=== PATIENT | female | born 1955 | race Caucasian/White ===

== ENCOUNTER → 2022-06-01 14:04 | Outpatient (BNVA) | payer MEDICARE, SELFPAY | PROVIDERS: PCP Internal Medicine; Visit Provider Internal Medicine | DX: M48.061 Spinal stenosis, lumbar region without neurogenic claudication (principal); M21.371 Foot drop, right foot; G57.30 Lesion of lateral popliteal nerve, unspecified lower limb; G25.81 Restless legs syndrome | CPT/HCPCS: 99202 ==

== ENCOUNTER 2022-07-22 06:02 | Outpatient (REF) | payer MEDICARE, SELFPAY ==
--- NOTE | ~2022-07-22 | FL_ITS ---
EXAMINATION: XR FLUOROSCOPY WITH IMAGES CLINICAL INFORMATION: Pain in right shoulder. COMPARISON: None. TECHNIQUE: Fluoroscopy performed by Bee Maria. Fluoroscopy time: 0.1 minute. Cumulative Dose: 0.415 mGy. DAP: 0.0513 Gy-cm2. Images: 1. FINDINGS: There is a needle positioned in the glenohumeral joint space with contrast opacifying the joint space. No bony or joint abnormality seen. FL/FL guidance in treatment room IMPRESSION: Fluoroscopy was provided to the referrer for pain management.
== END 2022-07-22 06:03 | disposition home or self-care (01) ==
LOC: CF 06:02
PROVIDERS: Visit Provider Internal Medicine
DX: M25.511 Pain in right shoulder (principal)
CPT/HCPCS: 20610; J3300

== ENCOUNTER → 2022-09-18 11:26 | Outpatient (BNVA) | payer MEDICARE, SELFPAY | PROVIDERS: PCP Internal Medicine; Visit Provider Internal Medicine | DX: M25.511 Pain in right shoulder (principal) | CPT/HCPCS: 20610; 20611 ==

== ENCOUNTER → 2022-12-14 14:08 | Outpatient (BNVA) | payer MEDICARE, SELFPAY | PROVIDERS: PCP Internal Medicine; Visit Provider Internal Medicine | DX: M25.511 Pain in right shoulder (principal) | CPT/HCPCS: 20550; 20605; 20610; J2795; J3301 ==

== ENCOUNTER 2023-05-12 07:21 | Outpatient (REF) | payer MEDICARE, SELFPAY | END 2023-05-12 07:22 | disposition home or self-care (01) | LOC: CF 07:21 | PROVIDERS: PCP Internal Medicine; Visit Provider Internal Medicine | DX: Z13.89 Encounter for screening for other disorder (principal) | CPT/HCPCS: J3301 ==

== ENCOUNTER 2023-07-24 09:56 | Outpatient (REF) | payer MEDICARE, SELFPAY ==
--- NOTE | ~2023-07-24 | XR_ITS ---
EXAMINATION: XR SHOULDER, LEFT CLINICAL INFORMATION: Pain in left COMPARISON: Same-day right shoulder TECHNIQUE: AP external rotation, Grashey, scapular Y, and axillary views of the left shoulder. FINDINGS: The bones are diffusely demineralized. The bones are intact. No fracture. Glenohumeral and acromioclavicular alignment is anatomic. There is mild narrowing of the glenohumeral joint space. There is moderate degenerative change of the acromioclavicular joint. No abnormal soft tissue calcifications. XR/XR shoulder LT min 2V IMPRESSION: No acute bony abnormality. Degenerative changes.
--- NOTE | ~2023-07-24 | XR_ITS ---
EXAMINATION: XR SHOULDER, RIGHT CLINICAL INFORMATION: Pain in right shoulder COMPARISON: Same-day left shoulder TECHNIQUE: AP external rotation, Grashey, scapular Y, and axillary views of the right shoulder. FINDINGS: The bones are diffusely demineralized. The bones are intact. No fracture or dislocation. Glenohumeral and acromioclavicular alignment is anatomic. There is mild narrowing of the glenohumeral joint with small marginal osteophytes extending off the humeral head and inferior aspect of the glenoid. There is moderate degenerative change of the acromioclavicular joint. No abnormal soft tissue calcifications. XR/XR shoulder RT min 2V IMPRESSION: No acute bony abnormality. Degenerative changes.
== END 2023-07-24 09:57 | disposition home or self-care (01) ==
LOC: HO.XRAY 09:56
PROVIDERS: PCP Internal Medicine; Visit Provider Internal Medicine
DX: M25.511 Pain in right shoulder (principal); M25.512 Pain in left shoulder
CPT/HCPCS: 73030

== ENCOUNTER 2023-07-26 09:45 | Outpatient (AMB) | payer MEDICARE, SELFPAY ==
[2023-07-26 10:39] VITALS: BP 152/80; PULSE 94; RESP 14; O2SAT 93; BMI 22.1
--- NOTE | 2023-07-26 10:39 | MHC.OFFVIS ---
Intake Vital Signs 07/26/23 10:39 Height 5 ft 3 in Weight 125 lb BMI 22.1 BP 152/80 H Blood Pressure Location Rt brachial Position Sitting Respiration 14 Pulse 94 Pulse Source Pulse Oximeter Pulse Oximetry (%) 93 Oxygen Delivery Method Room Air Intake Visit Reasons: shoulder injection Allergies No Known Allergies Allergy (Verified 07/26/23 10:42) Medication List - Last Reconciled 07/26/23 by Shelby Tuttle LPN clonazepam 1 mg PO TID PRN methylphenidate HCl 20 mg PO TID tramadol 50 mg PO Q6H PRN trazodone 200 mg PO BEDTIME PRN HPI shoulder injection HPI Details 68-year-old female who presents today to the office for a shoulder injection. Denies any recent cough, cold, infection, fever or other significant changes in medical history since last office visit. Past Procedures: 05/12/23: Right shoulder bicipital groove and subacromial/subdeltoid bursa injections US guided: 70% relief. 09/18/22: Glenohumeral and Subacromial Joint Injection ultrasound-guided ? 60% relief. 07/22/22: Right Intraarticular Shoulder Injection fluoro guided ? 100% relief. FOR[facility]LY [facility] Medical History (Updated 08/03/23 @ 08:06 by Arturo Holcomb MD) History of COVID-19 Asthma GERD (gastroesophageal reflux disease) ADHD Depression Anxiety Chronic bilateral low back pain Surgical History (Updated 06/01/22 @ 14:38 by KING Kelly) History of arthroscopy of right shoulder H/O gastric bypass Review of Systems Const All systems reviewed & are unremarkable except as noted in HPI and below Physical Exam Vital Signs: Last Vital Signs Pulse 94 07/26/23 10:39 Resp 14 07/26/23 10:39 BP 152/80 H 07/26/23 10:39 Pulse Ox 93 07/26/23 10:39 Oxygen Delivery Method Room Air 07/26/23 10:39 BMI result Body Mass Index 22.1 General: Appears afebrile. Alert and oriented. Mood and affect appropriate. Follows and participates in conversation appropriately. Respiratory effort is unlabored. Able to transition from sit to stand unassisted. Ambulates with bilaterally normal heel strike and toe off. Office Procedures Joint Injection/Drain Joint Injection/Drain Details: Bilateral glenohumeral shoulder injection, ultrasound guided. Primary Site: right shoulder Secondary Site: left shoulder Prep: site was prepped using sterile technique Injected: 40 mg of, Kenalog, with 3 mL of (Ropivacaine 0.5%) and in the joint Approach Used: posterolateral Procedure: The patient tolerated the procedure well Coding Details: An ultrasound image of the injection was taken and stored in the permanent record. - Glenohumeral with ultrasound guidance (Bilateral) Procedure code (CPT) selection complete Results Reviewed Results Reviewed: No imaging is available for review. Assessment & Plan Assessment & Plan (1) Bilateral shoulder pain: Code(s): M25.511 - Pain in right shoulder; M25.512 - Pain in left shoulder Qualifiers: Chronicity: chronic Qualified Code(s): M25.511 - Pain in right shoulder; M25.512 - Pain in left shoulder; G89.29 - Other chronic pain Plan Patient is status post bilateral glenohumeral shoulder injection, ultrasound guided. Patient tolerated procedure well and was discharged home in stable condition with discharge instructions. All questions were answered. I also ordered a DEXA scan to access the bone density. Follow-up as needed. Scribed for Dr. Holcomb by Huang Harris, medical records auditor, on 07/26/2023. I, Dr. Holcomb, have personally reviewed and agree with the information entered by the scribe. Orders: Orders XR shoulder LT min 2V 07/24/23 M25.511 - Pain in right shoulder, M25.512 - Pain in left shoulder XR DEXA axial skeleton 07/26/23 M25.511 - Pain in right shoulder, M25.512 - Pain in left shoulder XR shoulder RT min 2V 07/24/23 M25.511 - Pain in right shoulder, M25.512 - Pain in left shoulder Coding Level of Care Code Est Pt Level 3 (52062) Diagnoses Chronic pain of both shoulders M25.511; M25.512; G89.29 Chronicity: chronic CPT Codes Coding - Joint 8: - Glenohumeral with ultrasound guidance ([id number])
== END 2023-07-26 11:00 | disposition home or self-care (01) ==
PROVIDERS: PCP Internal Medicine; Visit Provider Internal Medicine
DX: M25.511 Pain in right shoulder (principal); M25.512 Pain in left shoulder; G89.29 Other chronic pain
CPT/HCPCS: 20611

== ENCOUNTER → 2023-07-26 09:45 | Outpatient (BNVA) | payer MEDICARE, SELFPAY | PROVIDERS: PCP Internal Medicine; Visit Provider Internal Medicine | DX: M25.511 Pain in right shoulder (principal); M25.512 Pain in left shoulder; G89.29 Other chronic pain | CPT/HCPCS: 20611; J3301 ==

== ENCOUNTER → 2023-08-06 09:04 | Outpatient (BNVA) | payer MEDICARE, SELFPAY | PROVIDERS: PCP Internal Medicine; Visit Provider Internal Medicine | DX: M25.511 Pain in right shoulder (principal); M25.512 Pain in left shoulder; M54.12 Radiculopathy, cervical region; G89.29 Other chronic pain | CPT/HCPCS: 20550; 99212; J3301 ==

== ENCOUNTER 2023-08-11 10:21 | Outpatient (AMB) | payer MEDICARE, SELFPAY ==
--- NOTE | 2023-08-11 10:54 | MHC.OFFVIS ---
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 The patient describes her left shoulder pain as sharp in nature. She did injure left shoulder several years ago while lifting a heavy object. Since that time her symptoms have gotten worse in spite of continued non operative treatments. She has had multiple injections. The most recent injection gave her no relief. She has also been to physical therapy for 12 weeks over the last 6 months which aggravated her pain. She has tried Tylenol, anti-inflammatory medicines, tramadol and oxycodone which gave her only mild relief. The patient reports difficulty lifting her left hand above shoulder height. Allergies No Known Allergies Allergy (Verified 08/11/23 11:12) Medication List - Last Reconciled 08/11/23 by Crissy Che RN clonazepam 1 mg PO TID PRN methylphenidate HCl 20 mg PO TID oxycodone 15 mg PO QID PRN tramadol 50 mg PO Q6H PRN trazodone 200 mg PO BEDTIME PRN PFSH Medical History (Updated 08/11/23 @ 11:46 by Naseem Gallagher MD) History of COVID-19 Asthma GERD (gastroesophageal reflux disease) ADHD Depression Anxiety Chronic bilateral low back pain Surgical History (Updated 06/01/22 @ 14:38 by KING Kelly) History of arthroscopy of right shoulder H/O gastric bypass Physical Exam Const Other: Well-nourished well-developed very friendly female awake alert and oriented x3 in no acute distress Extrem Other: Bilateral upper extremity examination shows good capillary refill, no skin lesions noted, normal sensation light touch Left shoulder examination shows decreased range of motion when compared to her right shoulder, 4+ out of 5 strength with supraspinatus testing, positive impingement signs, tenderness over her acromioclavicular joint, no instability Assessment & Plan Assessment & Plan (1) Left shoulder pain: Code(s): M25.512 - Pain in left shoulder Plan: Ms. Pagan presents with progressively worsening left shoulder pain and weakness due to impingement syndrome, acromioclavicular joint arthritis and possible rotator cuff tearing. Thus, I will send the patient for an MRI of her left shoulder for further evaluation. I will see her back once the MRI is completed to discuss the findings and treatment options. She will continue with her range of motion exercises in the meantime to prevent stiffness. Feel free to call me at any time should questions regarding her orthopedic management arise. Thank you very much for asking me to see this very friendly patient. I spent 22 minutes in reviewing the patient's records and imaging studies, seeing the patient and documenting in the medical record. Orders: Orders MR shoulder LT wo con Today M25.512 - Pain in left shoulder Coding Level of Care Code New Pt Level 2 (14509) Diagnoses Left shoulder pain M25.512
== END 2023-08-11 11:53 | disposition home or self-care (01) ==
PROVIDERS: PCP Internal Medicine; Visit Provider Orthopaedic Surgery
DX: M25.512 Pain in left shoulder (principal)
CPT/HCPCS: 99202

== ENCOUNTER → 2023-08-11 10:21 | Outpatient (BNVA) | payer MEDICARE, SELFPAY | PROVIDERS: PCP Internal Medicine; Visit Provider Orthopaedic Surgery | DX: M25.512 Pain in left shoulder (principal); M25.511 Pain in right shoulder | CPT/HCPCS: 99202 ==

== ENCOUNTER 2023-08-18 10:38 | Outpatient (REF) | payer MEDICARE, SELFPAY ==
--- NOTE | ~2023-08-18 | MM_ITS ---
EXAMINATION: BONE DENSITOMETRY CLINICAL INDICATION: Pain in right shoulder. COMPARISON: This is the patient's baseline examination. TECHNIQUE: Using a [employer] DXA System (software version: 13.1) manufactured by [employer], dual-energy x-ray absorptiometry was performed of the lumbar spine and left hip. The images are of good technical quality. Summary results are attached. FINDINGS: LEFT FEMUR, NECK: BMD 0.689 g/cm2, Z-score -0.8, T-score -2.5, osteoporosis. LEFT FEMUR, TOTAL: BMD 0.747 g/cm2, Z-score -0.6, T-score -2.1, osteopenia. AP SPINE L1-L4: BMD 0.922 g/cm2, Z-score -0.3, T-score -2.1, osteopenia. IDENTIFIED RISK FACTORS: Menopause, low calcium intake, glucocorticoids, secondary osteoporosis (partial gastrectomy). HISTORY OF FRACTURE: None listed. MEDICATIONS: None listed. MM/XR DEXA axial skeleton IMPRESSION: 1. DIAGNOSIS: Osteoporosis based on the lowest T-score value of -2.5 in the femoral neck applying World Health Organization criteria. 2. 10-YEAR FRACTURE RISK PREDICTION, FRAX: According to the guidelines, FRAX calculation should only be performed on patients in the osteopenia bone density category. Therefore, FRAX was not performed on this patient. 3. Treatment Recommendations: NOF guidelines recommend consideration for treatment in postmenopausal women and men age 50 and older presenting with the following: -A hip or vertebral (clinical or morphometric) fracture. -T-score less than or equal to -2.5 at the femoral neck or spine after appropriate evaluation to exclude secondary causes. -Low bone mass at the hip or spine and a 10-year fracture probability by FRAX of greater than or equal to 3% for hip fracture or greater than or equal to 20% for major osteoporotic fracture based on the [place] adapted WHO algorithm. 4. Other Recommendations: All treatment decisions require clinical judgment and consideration of individual patient factors, including patient preferences, comorbidities, previous drug use, risk factors not captured in the FRAX model (e.g. frailty, falls, vitamin D deficiency, increased bone turnover, interval significant decline in bone density) and possible under or overestimation of fracture risk by FRAX. Additional medical evaluation for secondary cause of low bone mineral density may be appropriate. FUTURE SCAN RECOMMENDATION: People with diagnosed cases of osteoporosis or at high risk for fracture should have regular bone mineral density tests. For patients eligible for Medicare, routine testing is allowed once every 2 years. The testing frequency can be increased to one year for patients who have rapidly progressing disease, those who are receiving or discontinuing medical therapy to restore bone mass, or have additional risk factors.
== END 2023-08-18 10:39 | disposition home or self-care (01) ==
LOC: HO.MAMMO 10:38
PROVIDERS: PCP Internal Medicine; Visit Provider Internal Medicine
DX: Z13.820 Encounter for screening for osteoporosis (principal); Z78.0 Asymptomatic menopausal state; M25.511 Pain in right shoulder; M25.512 Pain in left shoulder
CPT/HCPCS: 77080

== ENCOUNTER 2023-08-24 09:28 | Outpatient (AMB) | payer MEDICARE, SELFPAY ==
--- NOTE | 2023-08-24 09:33 | MHC.OFFVIS ---
Intake Vital Signs 08/24/23 09:37 Height 5 ft 3 in Weight 125 lb BMI 22.1 Intake Visit Reasons: OV - left shoulder pain Intake Note: Ms. Pagan presents with progressively worsening left shoulder pain and weakness. She describes her pain as sharp and severe in nature, 07/20. Her symptoms have gotten worse over the last 12 months in spite of continued non operative treatments. She did injure her left shoulder approximately 1 year ago while lifting heavy object. Since that time her symptoms have gotten worse. She has done physical therapy which aggravated her pain and prevented her from returning to therapy. She has had injections in the past which gave her minimal relief. She has also tried Tylenol anti-inflammatory medicines, tramadol and oxycodone which gave her minimal relief. The patient reports difficulty lifting her left hand above shoulder height. Allergies No Known Allergies Allergy (Verified 08/11/23 11:12) Medication List - Last Reconciled 08/24/23 by Naseem Gallagher MD bupropion HCl 100 mg PO BID clonazepam 1 mg PO TID PRN methylphenidate HCl 20 mg PO TID oxycodone 15 mg PO QID PRN tramadol 50 mg PO Q6H PRN trazodone 200 mg PO BEDTIME PRN PFSH Medical History (Updated 08/11/23 @ 11:46 by Naseem Gallagher MD) History of COVID-19 Asthma GERD (gastroesophageal reflux disease) ADHD Depression Anxiety Chronic bilateral low back pain Surgical History (Updated 06/01/22 @ 14:38 by KING Kelly) History of arthroscopy of right shoulder H/O gastric bypass Physical Exam Vital Signs: BMI result Body Mass Index 22.1 Const Other: Well-nourished well-developed very friendly female awake alert and oriented x3 in no acute distress room Lungs - clear to auscultation bilaterally with symmetric expansion Cardiovascular exam - regular rate and rhythm Abdominal exam - soft nontender nondistended Extrem Other: Bilateral upper extremity examination shows good capillary refill, no skin lesions noted, normal sensation light touch Left shoulder examination shows decreased active and passive range of motion when compared to her right shoulder, 4+ out of 5 strength with supraspinatus testing, positive impingement signs, tenderness over her acromioclavicular joint, no instability Assessment & Plan Assessment & Plan (1) Left shoulder pain: Code(s): M25.512 - Pain in left shoulder Plan: Ms. Pagan presents with progressively worsening left shoulder pain and weakness due to impingement syndrome, acromioclavicular joint arthritis and most likely a full-thickness rotator cuff tear. I had a lengthy discussion with the patient regarding the treatment options. At this point she has failed continued non operative treatments. The risks and benefits of left shoulder surgery were discussed at length with the patient. The patient wishes to proceed with surgery. Surgery will most likely involve left shoulder diagnostic arthroscopy with distal clavicle excision, acromioplasty and rotator cuff repair should a full-thickness tear be found at the time of her surgery. The patient will contact my office to pick a surgery date. She will follow-up as instructed. Feel free to call me at any time should questions regarding her orthopedic management arise. I spent 22 minutes in reviewing the patient's records and imaging studies, seeing the patient and documenting in the medical record. Coding Level of Care Code Est Pt Level 2 (83221) Diagnoses Left shoulder pain M25.512
[2023-08-24 09:37] VITALS: BMI 22.1
== END 2023-08-24 10:02 | disposition home or self-care (01) ==
PROVIDERS: PCP Internal Medicine; Visit Provider Orthopaedic Surgery
DX: M25.512 Pain in left shoulder (principal)
CPT/HCPCS: 99212

== ENCOUNTER → 2023-08-24 09:28 | Outpatient (BNVA) | payer MEDICARE, SELFPAY | PROVIDERS: PCP Internal Medicine; Visit Provider Orthopaedic Surgery | DX: M25.512 Pain in left shoulder (principal) | CPT/HCPCS: 99212 ==

== ENCOUNTER 2023-09-06 06:32 | Day surgery (SDC) | payer MEDICARE, SELFPAY ==
[2023-08-30 15:22] VITALS: BMI 22.1
[2023-09-06] VITALS (10 sets, daily range): BP systolic 116–151; BP diastolic 61–83; PULSE 69–84; RESP 16–18; TEMP 36.7–37; O2SAT 93–98; BMI 23.0
--- NOTE | 2023-09-06 09:05 | HO.ANESPROP2 ---
Documented by User: Kandis Berman NP 08/31/23 13:55 HPI - Anesthesia Eval Consult details Narrative: 68yo F for Left Shoulder Arthroplasty, distal clavicle excision, acromioplasty, capsular release, manipulation PMFSH Active Problems Active Problems: All Active Problems (Updated 08/30/23 @ 15:18 by Aditi Lopez RN) Left shoulder pain (Acute) Cervical radicular pain (Acute) Bilateral shoulder pain (Acute) Right shoulder pain (Acute) Peroneal neuropathy (Acute) Foot drop, right (Acute) Restless legs syndrome (Acute) Spinal stenosis, lumbar region without neurogenic claudication (Acute) Past Medical History Medical History Restless leg syndrome Spinal stenosis Arthritis History of COVID-19 Asthma GERD (gastroesophageal reflux disease) ADHD Depression Anxiety Chronic bilateral low back pain Surgical History Surgical History History of arthroscopy of right shoulder H/O gastric bypass Social History Patient Tobacco Use Status: Never used Tobacco Have you been hit, kicked, punched, or otherwise hurt by someone within the past year? If so, by whom?: No Are you DNR?: No Advance Directives: No Advance Directives Information Provided: Yes Recently lost weight without trying: No Nutrition Risks: No Nutritional Risk Patient : No Meds Allergies Allergy/AdvReac Type Severity Reaction Status Date / Time No Known Allergies Allergy Verified 08/11/23 11:12 Active Medications: Current Medications Cefazolin Sodium/Dextrose (Ancef) 2 gm in 50 mls @ 100 mls/hr IV PREOP ONE Stop: 09/06/23 04:01 Home Medications Medication Instructions Recorded Confirmed Last Taken Type clonazepam 1 mg tablet 1 mg PO TID PRN Anxiety 06/01/22 08/30/23 Unknown History methylphenidate HCl 20 mg tablet 20 mg PO TID 06/01/22 08/30/23 Unknown History tramadol 50 mg tablet 50 mg PO Q6H PRN Pain 06/01/22 08/30/23 Unknown History trazodone 100 mg tablet 200 mg PO BEDTIME PRN Insomnia 06/01/22 08/30/23 Unknown History oxycodone 15 mg tablet 15 mg PO QID PRN Pain 08/06/23 08/30/23 Unknown History bupropion HCl 100 mg tablet 100 mg PO BID 08/24/23 08/30/23 Unknown History Exam Height,Weight and Vital Signs: Height 5 ft 3 in Weight 56.699 kg Assessment and Plan Assessment Anesthesia Assessment: Chart Reviewed Documented by User: Crissy Ybarra DO 09/06/23 09:58 PMFSH Past Medical History Medical History Restless leg syndrome Spinal stenosis Arthritis History of COVID-19 Asthma GERD (gastroesophageal reflux disease) ADHD Depression Anxiety Chronic bilateral low back pain Family History Family history of problems with anesthesia: No Surgical History Surgical History History of arthroscopy of right shoulder H/O gastric bypass History of Problems with Anesthesia: No Social History Patient Tobacco Use Status: Never used Tobacco Have you been hit, kicked, punched, or otherwise hurt by someone within the past year? If so, by whom?: No Are you DNR?: No Advance Directives: No Advance Directives Information Provided: Yes Recently lost weight without trying: No Nutrition Risks: No Nutritional Risk Patient : No Meds Allergies Allergy/AdvReac Type Severity Reaction Status Date / Time No Known Allergies Allergy Verified 08/11/23 11:12 Home Medications Medication Instructions Recorded Confirmed Last Taken Type clonazepam 1 mg tablet 1 mg PO TID PRN Anxiety 06/01/22 08/30/23 Unknown History methylphenidate HCl 20 mg tablet 20 mg PO TID 06/01/22 08/30/23 Unknown History tramadol 50 mg tablet 50 mg PO Q6H PRN Pain 06/01/22 08/30/23 Unknown History trazodone 100 mg tablet 200 mg PO BEDTIME PRN Insomnia 06/01/22 08/30/23 Unknown History oxycodone 15 mg tablet 15 mg PO QID PRN Pain 08/06/23 08/30/23 Unknown History bupropion HCl 100 mg tablet 100 mg PO BID 08/24/23 08/30/23 Unknown History Exam Exam Date and Time: September 06, 2023 0905 Height,Weight and Vital Signs: Height 5 ft 3 in Weight 56.699 kg Vital Signs Temperature 98.6 F 09/06/23 07:25 Pulse Rate 73 09/06/23 07:25 Respiratory Rate 18 09/06/23 07:25 Blood Pressure 144/83 H 09/06/23 07:25 Pulse Oximetry 95 09/06/23 07:25 Oxygen Delivery Method Room Air 09/06/23 07:25 Temperature 98.6 F 09/06/23 07:25 Pulse Rate 73 09/06/23 07:25 Respiratory Rate 18 09/06/23 07:25 Blood Pressure 144/83 H 09/06/23 07:25 Pulse Oximetry 95 09/06/23 07:25 Oxygen Delivery Method Room Air 09/06/23 07:25 Airway Mallampati Class: I TM Dist: <=3cm Neck ROM: Limited Loose/Missing/Broken Teeth: Yes (Edentulous) Heart: S1S2 Lungs: CTAB Assessment and Plan Assessment Anesthesia Assessment: Anesthesia Plan Discussed and Chart Reviewed Final Anesthetic Review Family History of Problems with Anesthesia: No History of Problems with Anesthesia: No NPO: Yes ASA Class: II Final Preanesthetic Review: No Changes in Pt Med Stat, Meds/Allgs Chart Reviewed, Consent Obtained/Reviewed and Anes Risks/Benef Reviewed Patient Risk: Low Procedure Risk: Low Anesthetic Plan Anesthetic Plan: GA, Regional Block (left brachial plexus) and Agree w/ Assess. and Plan Disposition: Standard PACU
[2023-09-06] MEDS: Lactated Ringers 1,000 ML 100 ML IVCONT (09:29)
--- NOTE | 2023-09-06 10:40 | P.BOP_ITS ---
Brief Operative Note Date of Service: 09/06/23 Pre-op diagnosis: Left shoulder impingement syndrome, left shoulder acromioclavicular joint arthritis, left shoulder adhesive capsulitis Post-op diagnosis: other (Same as preoperative diagnoses as well as left shoulder glenohumeral joint arthritis) Procedure: Left shoulder diagnostic arthroscopy with left shoulder arthroscopic distal clavicle excision, left shoulder arthroscopic acromioplasty, left shoulder arthroscopic anterior capsular release, left shoulder arthroscopic glenohumeral joint debridement, left shoulder manipulation under anesthesia Implants: none Surgeon: Naseem Gallagher MD Anesthesia: GETA and regional Was an Coremaker Supervisor used for this Procedure?: No Estimated blood loss (mL): 10 Pathology: none sent Condition: stable Disposition: PACU
--- NOTE | 2023-09-06 10:43 | P.OP_ITS ---
Operative Note Operative Note Date of Service: 09/06/23 Narrative: After the patient was identified as Pati Pagan and their left shoulder was initialed by myself the patient was brought to the holding area where a left shoulder interscalene regional block was performed by the anesthesiologist in routine fashion. The patient was then brought to the operating room where general anesthesia was induced by the anesthesiologist in routine fashion. The patient was given 2 g of IV Ancef preoperatively for infection prophylaxis. Examination under anesthesia of the patient's left shoulder showed decreased range of motion when compared to the right shoulder. The patient's left shoulder had forward flexion to 110 degrees compared to 170 degrees, external rotation to 40 degrees compared to 70 degrees, and internal rotation to 40 degrees compared to 50 degrees. The patient was gently positioned in the beach chair position with all bony prominences well padded. The patient's left shoulder region and upper extremity were prepped and draped in sterile fashion. A formal time-out was completed. A #11 scalpel blade was used to make a posterior portal 2 cm inferior and 1 cm medial to the posterolateral corner of the acromion. Blunt trocar technique was used to enter the glenohumeral joint in routine fashion. An anterior portal was made just lateral to the coracoid process after proper positioning was confirmed using a spinal needle. Diagnostic arthroscopy showed diffuse grade 3 and 4 degenerative changes of the articular surfaces of the glenoid and humeral head. The articular surfaces were then made smooth using the arthroscopic shaver. There was no evidence of rotato r cuff tearing. There was no evidence of injury to the biceps tendon or its insertion onto the glenoid. There was inflammation of the anterior joint capsule consistent with adhesive capsulitis. The ArthroCare Wand was then used to perform an anterior capsular release between the inferior border of the biceps tendon and the superior border of the subscapularis tendon. The arthroscope was then placed from the posterior portal into the subacromial space. A lateral portal was made 2 fingerbreadths lateral to the anterior lateral corner of the acromion. The ArthroCare Wand was used to ablate soft tissues along the undersurface of the acromion as well as to excise the coracoacromial ligament. There was a sharp spur along the undersurface of the acromion which was removed using the hooded bur. The arthroscope was then placed into the lateral portal and the acromioplasty was completed with the bur in the posterior portal using the posterior aspect of the acromion as a cutting block. The ArthroCare Wand was then brought in through the anterior portal and was used to ablate soft tissues along the acromioclavicular joint and distal clavicle. The posterior and superior ligamentous structures were left intact. A distal clavicle excision of 8 mm was performed using the hooded bur. Any remaining bursal tissue was removed using the arthroscopic shaver. The subacromial space was irrigated and then drained. All arthroscopic instruments were removed. A gentle manipulation under anesthesia was then performed. Full passive range of motion was easily obtained. The 3 portals were closed with 3-0 nylon interrupted suture. The subacromial space was injected with Marcaine. Dry sterile dressing was placed over all incisions. The patient's left upper extremity was placed into a sling. The patient was awoken and extubated in the operating room. The patient was transferred to the recovery room in stable condition.
[2023-09-06] MEDS: cefTRIAXone sodium 1 GM in 0.9 % Sodium Chloride 50 ML IV (10:50)
== END 2023-09-06 13:19 | disposition home or self-care (01) ==
PROVIDERS: PCP Internal Medicine; Visit Provider Orthopaedic Surgery
PROC: (CPT 29805; principal; 2023-09-06 09:10)
DX: M75.42 Impingement syndrome of left shoulder (principal); M75.02 Adhesive capsulitis of left shoulder; M19.012 Primary osteoarthritis, left shoulder; J45.909 Unspecified asthma, uncomplicated; F90.9 Attention-deficit hyperactivity disorder, unspecified type; K21.9 Gastro-esophageal reflux disease without esophagitis; F32.A Depression, unspecified; F41.9 Anxiety disorder, unspecified; G89.29 Other chronic pain; M54.50 Low back pain, unspecified; Z79.899 Other long term (current) drug therapy; Z98.84 Bariatric surgery status; Z86.16 Personal history of COVID-19
CPT/HCPCS: 29824; 29825; 29826; J0131; J0171; J0690; J0696; J1100; J2371; J2405; J2550; J2704; J2795; J3010

== ENCOUNTER → 2023-09-06 06:32 | Outpatient (BNV) | payer MEDICARE, SELFPAY | PROVIDERS: PCP Internal Medicine; Visit Provider Orthopaedic Surgery | DX: M75.42 Impingement syndrome of left shoulder (principal); M19.012 Primary osteoarthritis, left shoulder; M75.02 Adhesive capsulitis of left shoulder | CPT/HCPCS: 29822; 29824; 29825; 29826 ==

== ENCOUNTER 2023-09-23 10:22 | Outpatient (AMB) | payer MEDICARE, SELFPAY ==
--- NOTE | 2023-09-23 10:27 | A.OFFVIS_ITS ---
Intake Intake Visit Reasons: PO-Lt Shld 09/06 Intake Note: Ms. Pagan presents for her 1st postoperative visit after undergoing left shoulder arthroscopic surgery on 09/06/2023. She reports mild to moderate discomfort in her left shoulder. She has been doing stretching exercises on her own. She takes oxycodone which gives her fairly good relief. She denies any fevers or chills. Today she is most concerned with progressively worsening right shoulder pain and stiffness. Her right shoulder pain has gotten worse over the last few years in spite of continued non operative treatments. She has done physical therapy in the past which aggravated her symptoms. She has also tried Tylenol and anti- inflammatory medicines which gave her minimal relief. She has had injections in the past which gave her no relief. Allergies No Known Allergies Allergy (Verified 09/23/23 10:27) Medication List - Last Reconciled 09/23/23 by Naseem Gallagher MD clonazepam 1 mg PO TID PRN methylphenidate HCl 20 mg PO TID oxycodone 15 mg PO QID PRN oxycodone 10 mg (2 x 5 mg) PO Q4H PRN tramadol 50 mg PO Q6H PRN trazodone 200 mg PO BEDTIME PRN PFSH Medical History Restless leg syndrome Spinal stenosis Arthritis History of COVID-19 Asthma GERD (gastroesophageal reflux disease) ADHD Depression Anxiety Chronic bilateral low back pain Surgical History History of arthroscopy of right shoulder H/O gastric bypass Social History Patient Tobacco Use Status: Never used Tobacco Physical Exam Const Other: Well-nourished well-developed very friendly female awake alert and oriented x3 in no acute distress Extrem Other: Bilateral upper extremity examination shows good capillary refill, no skin lesions noted, normal sensation light touch Left shoulder examination shows that the surgical incisions are healing well, no erythema, mild discomfort with range of motion, 5/5 strength with supraspinatus testing Right shoulder examination shows positive impingement signs, 5/5 strength with supraspinatus testing, positive impingement signs, tenderness over her acromioclavicular joint, no instability Results Reviewed Results Reviewed: X-rays of the patient's right shoulder show severe acromioclavicular joint narrowing, a type 2 acromion, no acute bony abnormalities Assessment & Plan Assessment & Plan (1) Left shoulder pain: Code(s): M25.512 - Pain in left shoulder Plan: Ms. Pagan is doing very well after undergoing left shoulder arthroscopic surgery on 09/06/2023. Her sutures were removed and Steri-Strips placed over her incisions. She will continue with her home stretching program. She does not wish to go to formal physical therapy. The patient also has right shoulder pain and stiffness due to impingement syndrome, acromioclavicular joint arthritis and adhesive capsulitis. At this point she has failed continued non operative treatments. The risks and benefits of right shoulder surgery were discussed at length with the patient. The patient is interested in proceeding with surgery early next year. Surgery will most likely involve right shoulder diagnostic arthroscopy with distal clavicle excision, acromioplasty, capsular release and manipulation under anesthesia. The patient will contact my office to pick a surgery date. She will follow-up as instructed. Feel free to call me at any time should questions regarding her orthopedic management arise. (2) Right shoulder pain: Code(s): M25.511 - Pain in right shoulder Plan I spent 22 minutes in reviewing the patient's records and imaging studies, seeing the patient and documenting in the medical record. Medications: Changed From oxycodone Partial Fill upon patient request. 10 mg (2 x 5 mg) PO Q4H PRN 40 tabs 0RF pain To oxycodone Partial Fill upon patient request. 5 mg PO Q6H PRN 40 tabs 0RF pain Coding Level of Care Code Est Pt Level 2 (17996) Diagnoses Left shoulder pain M25.512 Right shoulder pain M25.511
== END 2023-09-23 10:48 | disposition home or self-care (01) ==
PROVIDERS: PCP Internal Medicine; Visit Provider Orthopaedic Surgery
DX: M25.511 Pain in right shoulder (principal); M25.512 Pain in left shoulder
CPT/HCPCS: 99212

== ENCOUNTER → 2023-09-23 10:22 | Outpatient (BNVA) | payer MEDICARE, SELFPAY | PROVIDERS: PCP Internal Medicine; Visit Provider Orthopaedic Surgery | DX: M25.511 Pain in right shoulder (principal); M25.512 Pain in left shoulder | CPT/HCPCS: 99212 ==

== ENCOUNTER 2023-10-25 10:12 | Outpatient (AMB) | payer MEDICARE, SELFPAY ==
[2023-10-25 10:31] VITALS: BP 134/81; PULSE 97; RESP 12; BMI 22.1
--- NOTE | 2023-10-25 10:31 | MHC.OFFVIS ---
Intake Vital Signs 10/25/23 10:31 Height 5 ft 3 in Weight 125 lb BMI 22.1 BP 134/81 Blood Pressure Location Rt brachial Position Sitting Respiration 12 Pulse 97 Pulse Source Pulse Oximeter Intake Visit Reasons: B/l Shoulder Injections/confirmed Allergies No Known Allergies Allergy (Verified 10/25/23 10:35) Medication List - Last Reconciled 10/25/23 by Shelby Tuttle LPN clonazepam 1 mg PO TID PRN methylphenidate HCl 20 mg PO TID oxycodone 5 mg PO Q8H PRN tramadol 50 mg PO Q6H PRN trazodone 200 mg PO BEDTIME PRN HPI B/l Shoulder Injections/confirmed HPI Details 68-year-old female who presents today to the office for bilateral shoulder injections. The patient reports 50% relief following the last procedure. She had left shoulder surgery on 09/06/[address] Gallagher. She continues to experience pain in her shoulder. She inquired about receiving a nerve block help with her postsurgical pain that has been preventing her from being able to do the physical therapy exercises that were prescribed to her following the surgery. Denies any recent cough, cold, infection, fever, or other significant changes in medical history since the last office visit. Past Procedures: 08/06/23: Bilateral Bicipital Groove Injection, ultrasound guided: 50% relief. 07/26/23: Bilateral glenohumeral shoulder injection, ultrasound guided.: No relief. 05/12/23: Right shoulder bicipital groove and subacromial/subdeltoid bursa injections US guided: 70% relief. 09/18/22: Glenohumeral and Subacromial Joint Injection ultrasound-guided ? 60% relief. 07/22/22: Right Intraarticular Shoulder Injection fluoro guided ? 100% relief. [facility] Medical History Restless leg syndrome Spinal stenosis Arthritis History of COVID-19 Asthma GERD (gastroesophageal reflux disease) ADHD Depression Anxiety Chronic bilateral low back pain Surgical History History of arthroscopy of right shoulder H/O gastric bypass Social History Patient Tobacco Use Status: Never used Tobacco Review of Systems Const All systems reviewed & are unremarkable except as noted in HPI and below Physical Exam Vital Signs: Last Vital Signs Pulse 97 10/25/23 10:31 Resp 12 10/25/23 10:31 BP 134/81 10/25/23 10:31 BMI result Body Mass Index 22.1 General: Appears afebrile. Alert and oriented. Mood and affect appropriate. Follows and participates in conversation appropriately. Respiratory effort is unlabored. Able to transition from sit to stand unassisted. Ambulates with bilaterally normal heel strike and toe off. Office Procedures Joint Injection/Drain Joint Injection/Drain Details: Right glenohumeral joint steroid injection, ultrasound guided Primary Site: right shoulder Prep: site was prepped using aseptic technique and site was prepped using sterile technique Injected: 40 mg of, Kenalog, with 1 mL of (lidocaine 1%), with 3 mL of (ropivacaine 0.25%) and in the joint Approach Used: posterolateral Procedure: The patient tolerated the procedure well Coding Details: An ultrasound image of the injection was taken and stored in the permanent record. 61116 - Glenohumeral with ultrasound guidance Procedure code (CPT) selection complete Nerve Block Details: Left suprascapular nerve block, US guided After obtaining written consent, pre-procedure blood pressure and heart rate were stable and recorded in the nursing record. The patient was placed in the sitting position. The area overlying the peripheral nerve was widely prepped with chloraprep. Using ultrasound, the appropriate landmarks were identified. An 80 mm 21 gauge echostim needle was advanced under ultrasound guidance to the suprascapular notch. Aspiration was negative for heme and synovial fluid. 4 cc of ropivacaine 0.5% was injected around the targeted nerve under the suprascapular ligament. The needle was removed, skin cleansed and a sterile bandage was applied. The patient tolerated the procedure well and no complications were encountered. Following the procedure the patient's vital signs were stable. The patient was discharged home in good condition with post-procedural instructions. Time Out: Immediately prior to the procedure, the following was verbally confirmed that there is a signed consent form and that the correct patient, planned procedure, site and side are consistent with documentation and that necessary equipment and/or blood products are available prior to the start of the case. Complications: none EBL: <5 cc An ultrasound image of the injection was taken and stored in the permanent record 46706 - Suprascapular (ultrasound guided) Procedure code (CPT) selection complete Results Reviewed Results Reviewed: No imaging is available for review. Assessment & Plan Assessment & Plan (1) Bilateral shoulder pain: Code(s): M25.511 - Pain in right shoulder; M25.512 - Pain in left shoulder Qualifiers: Chronicity: chronic Qualified Code(s): M25.511 - Pain in right shoulder; M25.512 - Pain in left shoulder; G89.29 - Other chronic pain Plan Patient is status post right glenohumeral shoulder injection for right shoulder pain secondary to osteoarthritis and left suprascapular nerve block for postoperative intractable left shoulder pain, US guided. Patient tolerated procedure well and was discharged home in stable condition with discharge instructions. All questions were answered. Follow-up as needed. Scribed for Dr. Holcomb by Huang Harris, medical insurance claims specialist, on 10/25/2023. I, Dr. Holcomb, have personally reviewed and agree with the information entered by the scribe. Coding Level of Care Code Procedure Only Diagnoses Chronic pain of both shoulders M25.511; M25.512; G89.29 Chronicity: chronic CPT Codes Coding - Joint 8: 37135 - Glenohumeral with ultrasound guidance ([id number]) Nerve Block - Nerve Block 4: 75062 - Suprascapular ([id number])
== END 2023-10-25 11:18 | disposition home or self-care (01) ==
PROVIDERS: PCP Internal Medicine; Visit Provider Internal Medicine
DX: M25.511 Pain in right shoulder (principal); M25.512 Pain in left shoulder
CPT/HCPCS: 20611; 64418

== ENCOUNTER → 2023-10-25 10:12 | Outpatient (BNVA) | payer MEDICARE, SELFPAY | PROVIDERS: PCP Internal Medicine; Visit Provider Internal Medicine | DX: M25.511 Pain in right shoulder (principal); M25.512 Pain in left shoulder; G89.29 Other chronic pain | CPT/HCPCS: 20611; 64418; J0665; J3301 ==

== ENCOUNTER 2023-11-18 07:59 | Outpatient (AMB) | payer MEDICARE, SELFPAY ==
[2023-11-18 08:01] VITALS: BMI 22.1
--- NOTE | 2023-11-18 08:01 | MHC.OFFVIS ---
Intake Vital Signs 11/18/23 08:01 Height 5 ft 3 in Weight 125 lb BMI 22.1 Intake Visit Reasons: Pre-Rt Shld 11/26 Intake Note: Pati is a 68 year old female who present for her pre operative appointment for her Right shoulder 11/26/2023. The patient did undergo left shoulder arthroscopic surgery on 09/06/2023. She reports mild intermittent discomfort in her left shoulder. She denies any fevers or chills. She describes her right shoulder pain as sharp and severe in nature, 10/10. Her right shoulder pain has gotten worse over the last few years in spite of continued non operative treatments. She has done physical therapy which aggravated her pain. She has also tried Tylenol and anti-inflammatory medicines which gave her minimal relief. The patient has difficulty lifting her right hand above shoulder height. She has had injections in the past which gave her minimal relief. Allergies No Known Allergies Allergy (Verified 11/18/23 08:07) Medication List - Last Reconciled 11/18/23 by Naseem Gallagher MD clonazepam 1 mg PO TID PRN methylphenidate HCl 20 mg PO TID oxycodone 5 mg PO Q8H PRN sertraline 20 mg PO DAILY tramadol 50 mg PO Q6H PRN trazodone 200 mg PO BEDTIME PRN PFSH Medical History Restless leg syndrome Spinal stenosis Arthritis History of COVID-19 Asthma GERD (gastroesophageal reflux disease) ADHD Depression Anxiety Chronic bilateral low back pain Surgical History History of arthroscopy of right shoulder H/O gastric bypass Social History Patient Tobacco Use Status: Never used Tobacco Physical Exam Vital Signs: BMI result Body Mass Index 22.1 Const Other: Well-nourished well-developed very friendly female awake alert and oriented x3 in no acute distress Lungs - clear to auscultation bilaterally with symmetric expansion Cardiovascular exam - regular rate and rhythm Abdominal exam - soft nontender nondistended Extrem Other: Right shoulder examination shows decreased range of motion when compared to her left shoulder, pain with range of motion, tenderness over her acromioclavicular joint, 5/5 strength with supraspinatus testing, positive impingement signs Results Reviewed Results Reviewed: X-rays of the patient's right shoulder show glenohumeral joint and acromioclavicular joint narrowing, a type 2 acromion, no acute bony abnormalities Assessment & Plan Assessment & Plan (1) Bilateral shoulder pain: Code(s): M25.511 - Pain in right shoulder; M25.512 - Pain in left shoulder Qualifiers: Chronicity: chronic Qualified Code(s): M25.511 - Pain in right shoulder; M25.512 - Pain in left shoulder; G89.29 - Other chronic pain Plan Ms. Pagan continues to do well after undergoing left shoulder arthroscopic surgery on 09/06/2023. She does have progressively worsening right shoulder pain and stiffness due to impingement syndrome, acromioclavicular joint arthritis, glenohumeral joint arthritis and adhesive capsulitis. I had a lengthy discussion with the patient regarding the treatment options. At this point she has failed continued non operative treatments. The risks and benefits of right shoulder surgery were discussed at length with the patient. The patient wishes to proceed with surgery. Surgery will most likely involve right shoulder diagnostic arthroscopy with distal clavicle excision, acromioplasty, capsular release and manipulation under anesthesia. The patient was given a prescription for oxycodone at her preoperative appointment. She will follow-up as instructed. Feel free to call me at any time should questions regarding her orthopedic management arise. I spent 22 minutes in reviewing the patient's records and imaging studies, seeing the patient and documenting in the medical record. Medications: New lorazepam (Ativan) 0.5 mg PO Q12H PRN 10 tabs 0RF muscle spasm oxycodone Partial Fill upon patient request. 10 mg (2 x 5 mg) PO Q4H PRN 40 tabs 0RF pain Coding Level of Care Code Est Pt Level 2 (66644) Diagnoses Chronic pain of both shoulders M25.511; M25.512; G89.29 Chronicity: chronic
== END 2023-11-18 08:17 | disposition home or self-care (01) ==
PROVIDERS: PCP Internal Medicine; Visit Provider Orthopaedic Surgery
DX: M25.511 Pain in right shoulder (principal); M25.512 Pain in left shoulder; G89.29 Other chronic pain
CPT/HCPCS: 99024

== ENCOUNTER → 2023-11-18 07:59 | Outpatient (BNVA) | payer MEDICARE, SELFPAY | PROVIDERS: PCP Internal Medicine; Visit Provider Orthopaedic Surgery | DX: M25.511 Pain in right shoulder (principal); M25.512 Pain in left shoulder; G89.29 Other chronic pain | CPT/HCPCS: 99212 ==

== ENCOUNTER 2023-11-26 08:43 | Day surgery (SDC) | payer MEDICARE, SELFPAY ==
[2023-11-23 14:53] VITALS: BMI 22.1
[2023-11-26] VITALS (9 sets, daily range): BP systolic 127–158; BP diastolic 70–106; PULSE 65–73; RESP 16; TEMP 37.2–37.3; O2SAT 96–100; BMI 23.6
--- NOTE | 2023-11-26 10:05 | HO.ANESPROP2 ---
Documented by User: Kandis Berman NP 11/25/23 10:14 HPI - Anesthesia Eval Consult details Narrative: 68yo F for Right Shoulder Arthroscopy, distal clavicle excision, acromioplasty,capsular release manipulation Chronic opioids PMFSH Active Problems Active Problems: All Active Problems (Updated 08/30/23 @ 15:18 by Aditi Lopez RN) Left shoulder pain (Acute) Cervical radicular pain (Acute) Bilateral shoulder pain (Acute) Right shoulder pain (Acute) Peroneal neuropathy (Acute) Foot drop, right (Acute) Restless legs syndrome (Acute) Spinal stenosis, lumbar region without neurogenic claudication (Acute) Past Medical History Medical History Restless leg syndrome Spinal stenosis Arthritis History of COVID-19 Asthma GERD (gastroesophageal reflux disease) ADHD Depression Anxiety Chronic bilateral low back pain Family History Family history of problems with anesthesia: No Surgical History Surgical History Hx of shoulder surgery History of arthroscopy of right shoulder H/O gastric bypass History of Problems with Anesthesia: No Social History Social History Patient Tobacco Use Status: Never used Tobacco Use of substances other than those prescribed or required for medical reasons: No Are you DNR?: No Advance Directives: No Advance Directives Information Provided: Yes Meds Allergies Allergy/AdvReac Type Severity Reaction Status Date / Time No Known Allergies Allergy Verified 11/18/23 08:07 Active Medications: Current Medications Cefazolin Sodium/Dextrose (Ancef) 2 gm in 50 mls @ 100 mls/hr IV PREOP ONE Stop: 11/26/23 06:27 Home Medications Medication Instructions Recorded Confirmed Last Taken Type clonazepam 1 mg tablet 1 mg PO TID PRN Anxiety 06/01/22 11/23/23 Unknown History methylphenidate HCl 20 mg tablet 20 mg PO TID 06/01/22 11/23/23 Unknown History tramadol 50 mg tablet 50 mg PO Q6H PRN Pain 06/01/22 11/23/23 Unknown History trazodone 100 mg tablet 200 mg PO BEDTIME PRN Insomnia 06/01/22 11/23/23 Unknown History sertraline 20 mg/mL oral 20 mg PO DAILY 11/18/23 11/23/23 Unknown History concentrate Exam Height,Weight and Vital Signs: Height 5 ft 3 in Weight 56.699 kg Assessment and Plan Assessment Anesthesia Assessment: Chart Reviewed Final Anesthetic Review Family History of Problems with Anesthesia: No History of Problems with Anesthesia: No Documented by User: Crissy Ybarra DO 11/26/23 11:01 [facility] Past Medical History Medical History Restless leg syndrome Spinal stenosis Arthritis History of COVID-19 Asthma GERD (gastroesophageal reflux disease) ADHD Depression Anxiety Chronic bilateral low back pain Family History Family history of problems with anesthesia: No Surgical History Surgical History Hx of shoulder surgery History of arthroscopy of right shoulder H/O gastric bypass History of Problems with Anesthesia: No Social History Social History Patient Tobacco Use Status: Never used Tobacco Use of substances other than those prescribed or required for medical reasons: No Are you DNR?: No Advance Directives: No Advance Directives Information Provided: Yes Meds Allergies Allergy/AdvReac Type Severity Reaction Status Date / Time No Known Allergies Allergy Verified 11/18/23 08:07 Home Medications Medication Instructions Recorded Confirmed Last Taken Type clonazepam 1 mg tablet 1 mg PO TID PRN Anxiety 06/01/22 11/23/23 Unknown History methylphenidate HCl 20 mg tablet 20 mg PO TID 06/01/22 11/23/23 Unknown History tramadol 50 mg tablet 50 mg PO Q6H PRN Pain 06/01/22 11/23/23 Unknown History trazodone 100 mg tablet 200 mg PO BEDTIME PRN Insomnia 06/01/22 11/23/23 Unknown History sertraline 20 mg/mL oral 20 mg PO DAILY 11/18/23 11/23/23 Unknown History concentrate Exam Exam Date and Time: November 26, 2023 1005 Height,Weight and Vital Signs: Height 5 ft 3 in Weight 56.699 kg Vital Signs Temperature 99.1 F 11/26/23 10:16 Pulse Rate 73 11/26/23 10:16 Respiratory Rate 16 11/26/23 10:16 Blood Pressure 127/72 11/26/23 10:16 Pulse Oximetry 98 11/26/23 10:16 Oxygen Delivery Method Room Air 11/26/23 10:16 Temperature 99.1 F 11/26/23 10:16 Pulse Rate 73 11/26/23 10:16 Respiratory Rate 16 11/26/23 10:16 Blood Pressure 127/72 11/26/23 10:16 Pulse Oximetry 98 11/26/23 10:16 Oxygen Delivery Method Room Air 11/26/23 10:16 Airway Mallampati Class: I TM Dist: <=3cm Neck ROM: Full Loose/Missing/Broken Teeth: Yes (edentulous) Heart: S1S2 Lungs: CTAB Assessment and Plan Assessment Anesthesia Assessment: Anesthesia Plan Discussed and Chart Reviewed Final Anesthetic Review Family History of Problems with Anesthesia: No History of Problems with Anesthesia: No NPO: Yes ASA Class: II Final Preanesthetic Review: No Changes in Pt Med Stat, Meds/Allgs Chart Reviewed, Consent Obtained/Reviewed and Anes Risks/Benef Reviewed Patient Risk: Low Procedure Risk: Intermediate Anesthetic Plan Anesthetic Plan: GA, Regional Block (right brachial plexus block) and Agree w/ Assess. and Plan Disposition: Standard PACU
[2023-11-26] MEDS: Lactated Ringers 1,000 ML 100 ML IVCONT (10:20)
--- NOTE | 2023-11-26 13:11 | P.BOP_ITS ---
Brief Operative Note Date of Service: 11/26/23 Pre-op diagnosis: Right shoulder impingement syndrome, right shoulder acromioclavicular joint arthritis, right shoulder adhesive capsulitis Post-op diagnosis: same Procedure: Right shoulder diagnostic arthroscopy with right shoulder arthroscopic distal clavicle excision, right shoulder arthroscopic acromioplasty, right shoulder arthroscopic anterior capsular release, right shoulder manipulation under anesthesia Implants: None Surgeon: Naseem Gallagher MD Anesthesia: GETA and regional Was an Stove Carriage Operator used for this Procedure?: No Estimated blood loss (mL): 15 Pathology: none sent Condition: stable Disposition: PACU
--- NOTE | 2023-11-26 13:12 | W.PM.OPN ---
Operative Note Operative Note Date of Service: 11/26/23 Narrative: After the patient was identified as Pati Pagan and her right shoulder was initialed by myself the patient was brought to the holding area where a right shoulder interscalene regional block was performed by the anesthesiologist in routine fashion. The patient was then brought to the operating room where general anesthesia was induced by the anesthesiologist in routine fashion. The patient was given 2 g of IV Ancef preoperatively for infection prophylaxis. Examination under anesthesia of the patient's right shoulder showed decreased passive range of motion when compared to the left shoulder. The patient's right shoulder had passive forward flexion to 110 degrees compared to 150 degrees, external rotation to 30 degrees compared to 40 degrees, and internal rotation to 40 degrees compared to 50 degrees. The patient was gently positioned in the beach chair position with all bony prominences well padded. The patient's right shoulder region and upper extremity were prepped and draped in sterile fashion. A formal time-out was completed. A #11 scalpel blade was used to make a posterior portal 2 cm inferior and 1 cm medial to the posterolateral corner of the acromion. Blunt trocar technique was used to enter the glenohumeral joint in routine fashion. An anterior portal was made just lateral to the coracoid process after proper positioning was confirmed using a spinal needle. Diagnostic arthroscopy showed diffuse grade 1 and 2 degenerative changes of the glenoid and humeral head articular surfaces. The articular surfaces of the glenoid and humeral head were made smooth using the arthroscopic shaver. There was no evidence of rotator cuff tearing. There was no evidence of injury to the biceps tendon or its insertion onto the glenoid. There was inflammation of the anterior joint capsule consistent with adhesive capsulitis. The ArthroCare Wand was then used to perform an anterior capsular release between the inferior border of the biceps tendon and the superior border of the subscapularis tendon. The arthroscope was then placed from the posterior portal into the subacromial space. A lateral portal was made 2 fingerbreadths lateral to the anterior lateral corner of the acromion. The ArthroCare Wand was used to ablate soft tissues along the undersurface of the acromion as well as to excise the coracoacromial ligament. There was a sharp spur along the undersurface of the acromion which was removed using the hooded bur. The arthroscope was then placed into the lateral portal and the acromioplasty was completed with the bur in the posterior portal using the posterior aspect of the acromion as a cutting block. The ArthroCare Wand was then brought in through the anterior portal and was used to ablate soft tissues along the acromioclavicular joint and distal clavicle. The posterior and superior ligamentous structures were left intact. A distal clavicle excision of 8 mm was performed using the fluted bur. Any remaining bursal tissue was removed using the arthroscopic shaver. The subacromial space was irrigated and then drained. All arthroscopic instruments were removed. A gentle manipulation under anesthesia was then performed. Full passive range of motion was easily obtained. The 3 portals were closed with 3-0 nylon interrupted suture. The subacromial space was injected with Marcaine. Dry sterile dressing was placed over all incisions. The patient's right upper extremity was placed into a sling. The patient was awoken and extubated in the operating room. The patient was transferred to the recovery room in stable condition.
[2023-11-26] MEDS: oxyCODONE HCl Immed Release 5 MG TABLET PO (13:14)
[2023-11-26] MEDS: Acetaminophen 1,000 MG/100 ML PIGGYBACK 400 MG IV (13:15)
[2023-11-26] MEDS: cefTRIAXone sodium 1 GM in 0.9 % Sodium Chloride 50 ML IV (13:32)
== END 2023-11-26 14:41 | disposition home or self-care (01) ==
PROVIDERS: PCP Internal Medicine; Visit Provider Orthopaedic Surgery
PROC: (CPT 29805; principal; 2023-11-26 11:20)
DX: M75.41 Impingement syndrome of right shoulder (principal); M75.01 Adhesive capsulitis of right shoulder; M19.011 Primary osteoarthritis, right shoulder; G89.29 Other chronic pain; M25.511 Pain in right shoulder; J45.909 Unspecified asthma, uncomplicated; K21.9 Gastro-esophageal reflux disease without esophagitis; F32.A Depression, unspecified; Z79.899 Other long term (current) drug therapy; F11.20 Opioid dependence, uncomplicated; Z98.890 Other specified postprocedural states; Z98.84 Bariatric surgery status; Z86.16 Personal history of COVID-19
CPT/HCPCS: 29824; 29825; 29826; J0131; J0171; J0690; J0696; J1100; J2250; J2405; J2704; J2795; J3010

== ENCOUNTER → 2023-11-26 08:43 | Outpatient (BNV) | payer MEDICARE, SELFPAY | PROVIDERS: PCP Internal Medicine; Visit Provider Orthopaedic Surgery | DX: M75.41 Impingement syndrome of right shoulder (principal); M19.011 Primary osteoarthritis, right shoulder; M75.02 Adhesive capsulitis of left shoulder | CPT/HCPCS: 29823; 29824; 29826 ==

== ENCOUNTER 2023-12-09 08:03 | Outpatient (AMB) | payer MEDICARE, SELFPAY ==
--- NOTE | 2023-12-09 08:06 | MHC.OFFVIS ---
Intake Intake Visit Reasons: Rt Shld 11/26 Intake Note: Pati is a 68 year old female who presents for a post operative appointment s/p Right shoulder 11/26/2023. Patient reports she is doing well with a little pain. She states her pain is worse after exercises. She states that her Left shoulder is hurting more then her Right shoulder. She denies any fevers or chills. The patient continues to take oxycodone which gives her good relief. Allergies No Known Allergies Allergy (Verified 12/09/23 08:06) Medication List - Last Reconciled 12/09/23 by Naseem Gallagher MD clonazepam 1 mg PO TID PRN lorazepam (Ativan) 0.5 mg PO Q12H PRN methylphenidate HCl 20 mg PO TID oxycodone 5 mg (1/2 x 10 mg) PO Q4H oxycodone 5 mg PO Q8H PRN oxycodone 10 mg (2 x 5 mg) PO Q4H PRN sertraline 20 mg PO DAILY tramadol 50 mg PO Q6H PRN trazodone 200 mg PO BEDTIME PRN PFSH Medical History Restless leg syndrome Spinal stenosis Arthritis History of COVID-19 Asthma GERD (gastroesophageal reflux disease) ADHD Depression Anxiety Chronic bilateral low back pain Surgical History Hx of shoulder surgery History of arthroscopy of right shoulder H/O gastric bypass Social History Patient Tobacco Use Status: Never used Tobacco Physical Exam Extrem Other: Right shoulder examination shows that the surgical incisions are healing well, no erythema, minimal discomfort with range of motion Assessment & Plan Assessment & Plan (1) Right shoulder pain: Code(s): M25.511 - Pain in right shoulder Plan Ms. Pagan is doing well after undergoing right shoulder arthroscopic surgery on 11/26/2023. Her sutures were removed and Steri-Strips placed over her incisions. She will continue with her home stretching program. I did refill her prescription for oxycodone. She will contact me prior to her follow-up appointment in 6 weeks should any questions or concerns arise. Feel free to call me at any time should questions regarding her orthopedic management arise. Medications: Refilled oxycodone Partial Fill upon patient request. 10 mg (2 x 5 mg) PO Q4H PRN 40 tabs 0RF pain Coding Level of Care Code Global (41471) Diagnoses Right shoulder pain M25.511
== END 2023-12-09 08:31 | disposition home or self-care (01) ==
PROVIDERS: PCP Internal Medicine; Visit Provider Orthopaedic Surgery
DX: M25.511 Pain in right shoulder (principal)
CPT/HCPCS: 99024

== ENCOUNTER → 2023-12-09 08:03 | Outpatient (BNVA) | payer MEDICARE, SELFPAY | PROVIDERS: PCP Internal Medicine; Visit Provider Orthopaedic Surgery | DX: M25.511 Pain in right shoulder (principal) | CPT/HCPCS: 99212 ==

== ENCOUNTER 2024-01-20 09:52 | Outpatient (AMB) | payer MEDICARE, SELFPAY ==
--- NOTE | 2024-01-20 10:04 | MHC.OFFVIS ---
Intake Intake Visit Reasons: Rt Shld 11/26 Intake Note: Pati is a 68 year old female who presents with complaints of mild to moderate intermittent discomfort in her right shoulder after undergoing right shoulder arthroscopic surgery on 11/26/2023. She continues with her home stretching program. She denies any fevers or chills. She takes oxycodone as needed for discomfort. Allergies No Known Allergies Allergy (Verified 01/20/24 10:09) Medication List - Last Reconciled 01/20/24 by Naseem Gallagher MD clonazepam 1 mg PO TID PRN lorazepam (Ativan) 0.5 mg PO Q12H PRN methylphenidate HCl 20 mg PO TID oxycodone 5 mg (1/2 x 10 mg) PO Q4H oxycodone 5 mg PO Q8H PRN oxycodone 10 mg (2 x 5 mg) PO Q4H PRN oxycodone 10 mg PO Q8H PRN sertraline 20 mg PO DAILY tramadol 50 mg PO Q6H PRN trazodone 200 mg PO BEDTIME PRN PFSH Medical History Restless leg syndrome Spinal stenosis Arthritis History of COVID-19 Asthma GERD (gastroesophageal reflux disease) ADHD Depression Anxiety Chronic bilateral low back pain Surgical History Hx of shoulder surgery History of arthroscopy of right shoulder H/O gastric bypass Social History Patient Tobacco Use Status: Never used Tobacco Physical Exam Extrem Other: Right shoulder examination shows slightly decreased range of motion, and compared to her left shoulder, 5/5 strength with supraspinatus testing, mild discomfort with resisted forward flexion, no discomfort with resisted internal or external rotation Assessment & Plan Assessment & Plan (1) Right shoulder pain: Code(s): M25.511 - Pain in right shoulder Plan Ms. Pagan continues to do well after undergoing right shoulder arthroscopic surgery on 11/26/2023. She will continue with her home stretching program. I did refill her prescription for oxycodone. I discussed with the patient the fact that her symptoms should continue to improve over the next few months. She will contact me prior to her follow-up appointment in 2 months should any questions or concerns arise. Feel free to call me at any time should questions regarding her orthopedic management arise. Medications: New oxycodone Partial Fill upon patient request. Take 1/2 tabe every 8 hours as needed for pain 10 mg PO Q8H PRN 14 tabs 0RF pain Coding Level of Care Code Global (21644) Diagnoses Right shoulder pain M25.511
== END 2024-01-20 10:35 | disposition home or self-care (01) ==
PROVIDERS: PCP Internal Medicine; Visit Provider Orthopaedic Surgery
DX: M25.511 Pain in right shoulder (principal)
CPT/HCPCS: 99024

== ENCOUNTER → 2024-01-20 09:52 | Outpatient (BNVA) | payer MEDICARE, SELFPAY | PROVIDERS: PCP Internal Medicine; Visit Provider Orthopaedic Surgery | DX: M25.511 Pain in right shoulder (principal) | CPT/HCPCS: 99212 ==